=== PATIENT | female | born 1975 | race Caucasian/White ===

== ENCOUNTER 2024-01-30 19:16 | Emergency (ER) | payer SELFPAY ==
[~2024-01-30] VITALS: Ht 172.7 cm; Wt 125.0 kg
[2024-01-30 19:19] VITALS: O2SAT 98
[2024-01-30] MEDS: TETRACAINE 0.5% OPHTH DROPS 4ML RIGHTEYE ONE (20:48)
[2024-01-30] MEDS: FLUORESCEIN SODIUM 1MG/STRIP RIGHTEYE ONE (20:48)
[2024-01-30] MEDS: DIAZEPAM 2 MG TABLET PO ONE (21:48)
[2024-01-30] MEDS ORDERED: ERYT1OIN6 EACHEYE (22:45)
[2024-01-30] MEDS ORDERED: HYDR45CR12 TP (22:45)
[2024-01-30 23:19] VITALS: BP 157/80; PULSE 73; RESP 18; TEMP 36.83628; O2SAT 98
== END 2024-01-30 23:19 | disposition home or self-care (01) ==
LOC: ER 19:16
DX: H57.11 Ocular pain, right eye (principal); Z88.2 Allergy status to sulfonamides
CPT/HCPCS: 99283